=== PATIENT | female | born 1995 | race Caucasian/White ===

== ENCOUNTER 2025-08-26 13:42 | Outpatient (CLI) | payer SELFPAY | END 2025-08-26 13:43 | disposition home or self-care (01) | LOC: CSHLAB 13:42 | PROVIDERS: ATTEND Student in an Organized Health Care Education/Training Program | DX: Z01.812 Encounter for preprocedural laboratory examination (principal); N90.60 Unspecified hypertrophy of vulva; R10.20 Pelvic and perineal pain unspecified side | CPT/HCPCS: 84703; 85027; 86850; 86900; 86901 ==